=== PATIENT | female | born 1945 | race Caucasian/White ===

== ENCOUNTER → 2016-11-30 | Outpatient (CLI) | payer OTHER, MEDICARE ==
[~2016-11-30] MED LIST: ASCA500 PO; ATOR-24 PO; ATV/1 PO; B-COTAB18 PO; BUPR-79 PO; CALCTAB5 PO; CHOL100010 PO; FEXO1TAB49 PO; FLAX1CAP11 PO; FLUTICASONE NASAL NAE; LISI-725 PO; METH2.5T PO; MULT-506 PO; MULT60CA PO; OMEP40CA PO; OMG3 PO; OXYSR10 PO; PRED-301 PO; PSYL28PO3 PO; RXC5 PO; TURM1CAP4 PO; VITA400C15 PO
--- NOTE | 2016-11-30 13:47 | MAMMOGRAPHY REPORT ---
BILATERAL DIGITAL SCREENING MAMMOGRAM WITH CAD: 11/30/2016 CLINICAL HISTORY: Routine screening. Patient has no complaints. TECHNIQUE: Bilateral CC and MLO views were obtained. Current study was also evaluated with a Compute r Aided Detection (CAD) system. COMPARISON: Comparison is made to exams dated: 11/24/2015 mammogram, 07/03/2014 mammogram, 06/25/2014 ma mmogram, 03/13/2013 mammogram, 02/12/2012 mammogram, and 10/06/2010 mammogram - [facility] enter. BREAST COMPOSITION: There are scattered areas of fibroglandular density in both breasts. FINDINGS: There is a stable circumscribed oval mass in the 3:30 posterior left breast, previously doc umented to represent a cyst on ultrasound. There are moderate vascular calcifications and scattered benign round calcifications in the breasts. A grouping of benign-appearing microcalcifications in th e 12:00 left breast has been present and unchanged dating back to 2006, therefore likely benign. No new suspicious mass, architectural distortion or cluster of microcalcifications is seen. IMPRESSION: ACR BI-RADS CATEGORY 1: NEGATIVE There is no mammographic evidence of malignancy. A 1 year screening mammogram is recommended. The pa tient will receive written notification of the results. Approximately 10% of breast cancers are not detected with mammography. A negative mammographic report should not delay biopsy if a clinically suggestive mass is present. Mary Beth Garg M.D. ay/:11/30/2016 12:53:13 [employer] Loan Clerk: Ariane SAMPSON(Vincent)(Carloz)(JEFF), [facility] letter sent: Normal 1/2 BI-RADS Code: ACR BI-RADS Category 1: Negative
== END | disposition home or self-care (01) ==
LOC: C.MAMM 09:34
PROVIDERS: ATTEND Internal Medicine Pulmonary Disease
DX: Z12.31 Encounter for screening mammogram for malignant neoplasm of breast (principal)

== ENCOUNTER 2022-10-18 04:05 | Inpatient (IN) ==
--- NOTE | 2022-10-18 04:25 | Emergency Department Note ---
History of Present Illness General Chief complaint: Abdominal Pain Time Seen by Provider: 10/18/22 04:08 History of Present Illness 77-year-old female presents emergency department via EMS reportedly had fallen off of a stool and landed on the right side of her chest and abdomen 3 days ago. Patient states that she takes hydrocodone 4 times a day and went to her primary care physician 2 days ago and was prescribed an unknown lozenge; patient called EMS tonight as she was sleeping upright and had increased pain in the right upper quadrant and right flank. Patient does not recall the last bowel movement she has had. Patient's had a prior vascular surgery done in 2012 or so at a facility in [place]. Patient has taken aspirin prior to arrival otherwise she is typically on blood thinners. Patient denies any complaint of difficulty breathing states pain increases with motion decreases with rest. There are no other mitigating or alleviating factors Home Medications Medication Instructions Recorded Confirmed Type atorvastatin 40 mg tablet 40 mg PO DAILY 06/17/20 07/26/20 History bupropion HCl 150 mg tablet,12 hr 150 mg PO QAM 06/17/20 07/26/20 History sustained-release cholecalciferol (vitamin D3) 25 25 mcg PO DAILY 06/17/20 07/26/20 History mcg (1,000 unit) capsule hydrocodone 5 mg-acetaminophen 325 1 tab PO Q6H PRN 06/17/20 07/26/20 History mg tablet lisinopril 40 mg tablet 40 mg PO DAILY 06/17/20 07/26/20 History lorazepam 1 mg tablet (Ativan) 1 mg PO DAILY PRN 06/17/20 07/26/20 History methotrexate sodium 2.5 mg tablet 2.5 mg PO DAILY 06/17/20 07/26/20 History multivitamin 1 tab PO DAILY 06/17/20 07/26/20 History omeprazole 40 mg capsule,delayed 40 mg PO DAILY 06/17/20 07/26/20 History release prednisone 5 mg tablet 5 mg PO DAILY 06/17/20 07/26/20 History vitamin E (dl, acetate) 400 unit unit PO 06/17/20 07/26/20 History chewable tablet amlodipine 10 mg tablet 10 mg PO DAILY 10/18/22 10/18/22 History Allergies Allergy/AdvReac Type Severity Reaction Status Date / Time Penicillins Allergy Unknown SORE Verified 07/26/20 10:22 TONGUE, OVERALL MUSCLE PAIN Past Med/Surg History Medical History H/O benign breast biopsy Splenic artery aneurysm "s/p repair" Surgical History H/O section H/O colonoscopy "04/26/2015- adenomatous polyp, diverticulosis" H/O esophagogastroduodenoscopy "04/27/2015- hyperplastic polyp, large hiatal hernia, gastritis" History of partial thyroidectomy S/P tonsillectomy and adenoidectomy S/P tubal ligation Social History Smoking Status: Never smoker Hx Alcohol Use: No Feels Safe at Home: Yes Review of Systems A total of 10 systems reviewed and were otherwise negative Cardiovascular: no chest pain Gastrointestinal: + abdominal pain, + bloating and + nausea Physical Exam Vital Signs Vital Signs - 24 hr 10/18/22 04:17 10/18/22 04:35 10/18/22 04:14 Pulse Rate 78 80 Pulse Rate [Finger] 78 Pulse Rate from SpO2 Sensor Pulse Rhythm [Finger] Regular Respiratory Rate 20 18 20 Respiratory Effort / Characteristics Non-Labored Respiratory Depth Normal Blood Pressure 133/62 Blood Pressure Mean 85 Pulse Oximetry 87 L 98 82 L Oxygen Delivery Method Room Air Sepsis Recent Fever Within 48 Hours No Sepsis New/Unexplained Change in Mental Status No Sepsis Action Taken by Nursing No Action Required 10/18/22 04:15 10/18/22 04:15 10/18/22 04:14 Pulse Rate 79 80 Pulse Rate [Finger] Pulse Rate from SpO2 Sensor 81 Pulse Rhythm [Finger] Respiratory Rate 16 Respiratory Effort / Characteristics Respiratory Depth Blood Pressure 133/62 Blood Pressure Mean 85 Pulse Oximetry 89 L Oxygen Delivery Method Sepsis Recent Fever Within 48 Hours Sepsis New/Unexplained Change in Mental Status Sepsis Action Taken by Nursing GENERAL: Patient is awake alert in no acute distress patient is resting comfortably and showing no signs of anxiety EYES: The conjunctivae are clear. The pupils are round and reactive. EARS, NOSE, MOUTH AND THROAT: The nose is without any evidence of any deformity. Mucous membranes are moist. Tongue is midline. NECK: The neck is nontender and supple. RESPIRATORY: Normal respiratory effort is noted there is no evidence of wheezing rhonchi or rales CARDIOVASCULAR: Regular rate and rhythm noted there no murmurs rubs or gallops normal S1 normal S2. Chest wall on the right side there is no rib cage ecchymosis or significant tenderness or crepitance GASTROINTESTINAL: The abdomen is soft but distended there is some mild tenderness in the right upper right flank and right lower quadrants there is tympany present there is no abnormal aortic pulsations or masses PELVIS: The Pelvis is stable. No tenderness to palpation is noted. BACK: No midline tenderness or or step-off noted range of motion in flexion ex tension as well as rotation no signs of muscle spasm noted MUSCULOSKELETAL/EXTREMITIES: There is no evidence of gross deformity full range of motion is noted in the hips and shoulders. SKIN: There is no obvious evidence of any rash. There are no petechiae, pallor or cyanosis noted. NEUROLOGIC: Patient is awake alert and oriented x3 strength is symmetric; GCS of 15 Course Reevaluation(s) Reevaluation #1: On repeat examination the patient states that she has decreased pain in the right abdomen and flank. She states however when she moves it increases. Patient also states that she had a splenic artery grafting and also states that she has a hiatal hernia. Patient's had a history of diverticulosis with no significant diverticulitis. No has a tympanic abdomen. However she states she is more comfortable. Started her on IV Levaquin and Flagyl as she has an allergy to penicillin. Patient states that the pain is starting to increase again on the right side. I have ordered. Time: 05:19 Consultations Consultation #1: Case was discussed with the [facility] hospitalist for admission Time: 05:19 Administered Medications Discontinued Medications Fentanyl Citrate (Fentanyl Citrate Pf 100 Mcg/2 Ml Vial) 50 mcg IV NOW STA Stop: 10/18/22 05:18 Last Admin: 10/18/22 05:45 Dose: 50 mcg Documented By: KOKO Levofloxacin/Dextrose (Levaquin/D5w) 500 mg in 100 mls @ 100 mls/hr IV NOW STA Stop: 10/18/22 06:03 Last Admin: 10/18/22 05:12 Dose: 100 mls/hr Documented By: KOKO Metronidazole (Flagyl) 500 mg in 100 mls @ 100 mls/hr IV NOW STA Stop: 10/18/22 06:03 Last Admin: 10/18/22 05:12 Dose: 100 mls/hr Documented By: KOKO Medical Decision Making Medical Records Attestation: I reviewed the patient's medical records. Home Medications Current Medication List: was personally reviewed by me Laboratory Data Attestation: I reviewed the patient's lab results. Lab results were interpreted by is unremarkable 10/18/22 04:40 10/18/22 04:40 Lab Results 10/18/22 10/18/22 10/18/22 Range/Units 04:40 04:40 04:40 WBC 8.97 (4.8-10.8) K/ul RBC 4.51 (4.20-5.40) M/uL Hgb 14.5 (12.0-16.0) g/dl Hct 42.6 (37.0-47.0) % MCV 94.5 (80.0-100.0) fL MCH 32.2 (25.0-34.0) pg MCHC 34.0 (32.0-36.0) g/dL RDW Std Deviation 52.0 H (36.4-46.3) fL RDW Coeff of Glynn 15.2 H (11.5-14.5) % Plt Count 223 (130-400) K/uL MPV 9.9 (9.4-12.4) fL Immature Gran % (Auto) 0.6 % Neut % (Auto) 75.2 % Lymph % (Auto) 13.0 % [place] % (Auto) 8.7 % Eos % (Auto) 1.8 % Baso % (Auto) 0.7 % Neut # (Auto) 6.75 H (1.40-6.50) K/uL Lymph # (Auto) 1.17 L (1.2-3.4) K/uL [place] # (Auto) 0.78 H (0.11-0.59) K/uL Eos # (Auto) 0.16 (0-0.50) K/uL Baso # (Auto) 0.06 (0-0.2) K/uL Immature Gran # (Auto) 0.05 (0.01-0.20) K/uL PT Cancelled INR Cancelled Sodium 136 (136-145) mmol/L Potassium 4.5 (3.5-5.1) mmol/L Chloride 102 (98-107) mmol/L Carbon Dioxide 28 (21-32) mmol/L Anion Gap 6 (3-11) BUN 24 H (6-23) mg/dl Creatinine 0.65 (0.6-1.2) mg/dl Est Cr Clr Drug Dosing 79.2 ml/min Est GFR ( Amer) 99.3 ml/min Est GFR (Non-Af Amer) 85.6 ml/min BUN/Creatinine Ratio 36.9 H (10-20) Glucose 111 H (70-99(Fasting)) mg/dl Calcium 9.3 (8.6-10.3) mg/dl Total Bilirubin 0.6 (0.2-1.0) mg/dl AST 19 (13-39) U/L ALT 24 (7-52) U/L Alkaline Phosphatase 67 (34-104) U/L Total Protein 6.9 (6.0-8.3) gm/dl Albumin 3.8 (3.4-5.0) gm/dl Globulin 3.1 (2.5-4.0) gm/dl Albumin/Globulin Ratio 1.2 (0.9-2) Lipase 13 (11-82) U/L Imaging Data Attestation: I personally reviewed and interpreted this imaging study as follows: My Impression: CT abdomen pelvis interpreted by me negative for liver laceration no obvious bowel obstruction Radiologist's Impression: Abdomen/Pelvis CT 10/18/22 04:08 Exam(s): CT ABDOMEN + PELVIS Without Contrast EXAM: CT Abdomen and Pelvis Without Intravenous Contrast CLINICAL HISTORY: abd pain. TECHNIQUE: Axial computed tomography images of the abdomen and pelvis without intravenous contrast. Automated exposure control was utilized for the study. A dose lowering technique was utilized adhering to the principles of ALARA. COMPARISON: No relevant prior studies available. FINDINGS: Lung bases: Unremarkable. No mass. No consolidation. ABDOMEN: Liver: Unremarkable. Gallbladder and bile ducts: Punctate gallstones noted along the posterior aspect of the gallbladder. No CT evidence for gallbladder wall thickening or biliary dilatation. Pancreas: Focal area of beam hardening metallic artifact is noted superior to the pancreatic tail and adjacent to the proximal splenic artery measuring 3.9 x 2.5 cm. The pancreas is unremarkable without inflammatory changes or ductal dilation. Spleen: Unremarkable. No splenomegaly. Adrenals: Unremarkable. No mass. Kidneys and ureters: Incidental nonobstructive subcentimeter nephrolithiasis involving the right kidney. No left nephrolithiasis. No hydronephrosis noted bilaterally. Stomach and bowel: There is a heterogeneous mass with irregular hypodense component centrally along the left lateral aspect of the herniated stomach in the posterior mediastinum measuring 5.5 x 5.5 x 6.8 cm. Hiatal hernia containing the fundus and superior body of the stomach in the posterior mediastinum. The distal, intraperitoneal portion of the stomach is decompressed and unremarkable. No bowel obstruction. No definite asymmetric bowel mucosal abnormality, accounting for decompression of the sigmoid colon. Diverticulosis noted with subtle fat stranding surrounding a diverticula in the mid to distal sigmoid and the anterior right pelvis (series 700; images 35-37). PELVIS: Appendix: No findings to suggest acute appendicitis. Bladder: Unremarkable. No stones. Reproductive: Unremarkable as visualized. ABDOMEN and PELVIS: Intraperitoneal space: No free intraperitoneal fluid or pneumoperitoneum. Bones/joints: No acute fracture. No dislocation. Soft tissues: No significant abnormality. No hernia. Vasculature: Unremarkable. No abdominal aortic aneurysm. Lymph nodes: Unremarkable. No enlarged lymph nodes. IMPRESSION: 1. There is a heterogeneous mass with irregular hypodense component centrally along the left lateral aspect of the herniated stomach in the posterior mediastinum measuring 5.5 x 5.5 x 6.8 cm. Favor an exophytic gastric mass over atypical gastric hernia. Recommend nonemergent evaluation with IV and ideally oral contrast. 2. No bowel obstruction. No definite asymmetric bowel mucosal abnormality, accounting for decompression of the sigmoid colon. Diverticulosis noted with subtle fat stranding surrounding a diverticula in the mid to distal sigmoid and the anterior right pelvis (series 700; images 35-37). Subtle sigmoid diverticulitis is noted. The clinical significance of this finding is indeterminate. 3. Focal area of beam hardening metallic artifact is noted superior to the pancreatic tail and adjacent to the proximal splenic artery measuring 3.9 x 2.5 cm. Suspect previous splenic artery aneurysm embolization. Electronically signed by: Luis A Keller MD 10/18/22 04:[address] 10/18/22 04:17 Exam(s): CT CHEST Without Contrast EXAM: CT Chest Without Intravenous Contrast CLINICAL HISTORY: rib pain. TECHNIQUE: Axial computed tomography images of the chest without intravenous contrast. Automated exposure control was utilized for the study. A dose lowering technique was utilized adhering to the principles of ALARA. COMPARISON: No relevant prior studies available. FINDINGS: Lungs: Curvilinear subsegmental changes in the inferior right middle lobe and bilateral lower lobes. No focal airspace consolidation. Pleural space: Unremarkable. No pneumothorax. No significant effusion. Heart: Cardiomegaly. Coronary artery calcification noted. No significant pericardial effusion. Mediastinum: The thoracic esophagus is decompressed without mucosal thickening or evidence for obstruction. Hiatal hernia containing the fundus and superior body of the stomach in the posterior mediastinum. The distal, intraperitoneal portion of the stomach is decompressed and unremarkable. Bones/joints: Left shoulder arthroplasty. No acute osseous abnormality. No dislocation. Soft tissues: Unremarkable. Vasculature: Unremarkable. No thoracic aortic aneurysm. Lymph nodes: Unremarkable. No enlarged lymph nodes. Stomach and bowel: There is a heterogeneous mass with irregular hypodense component centrally along the left lateral aspect of the herniated stomach in the posterior mediastinum measuring 5.5 x 5.5 x 6.8 cm. IMPRESSION: 1. There is a heterogeneous mass with irregular hypodense component centrally along the left lateral aspect of the herniated stomach in the posterior mediastinum measuring 5.5 x 5.5 x 6.8 cm. Favor an exophytic gastric mass over atypical gastric hernia. Recommend nonemergent evaluation with IV and ideally oral contrast. 2. The thoracic esophagus is decompressed without mucosal thickening or evidence for obstruction. 3. Curvilinear subsegmental atelectatic changes in the inferior right middle lobe and bilateral lower lobes. No focal airspace consolidation. 4. No acute osseous abnormality. Electronically signed by: Luis A Keller MD 10/18/22 04:55 AM ECG Data Attestation: I personally reviewed and interpreted this ECG as follows: Additional Comments: EKG interpreted by me normal sinus rhythm rate of 80 normal intervals normal axis no obvious ST segment elevation or depression MDM Narrative Medical decision making differential diagnosis includes intra-abdominal trauma, liver laceration, bowel obstruction, rib fracture, constipation, electrolyte abnormality, chest wall trauma Plan is to check labs, CT abdomen pelvis and CT chest Patient's lab work is unremarkable, patient's CT of the chest did not show any trauma, CT of the abdomen pelvis also does not show an intra-abdominal traumatic process there is diverticulosis with diverticulitis there is a mass in the posterior mediastinal region. Do not suspect this to be the cause of the patient's abdominal pain. Patient has mild diverticulitis again this may not be the cause of her pain. Patient was started on IV antibiotics. The etiology of her pain may in fact still be related to trauma however there is no significant trauma on CT of the chest or abdomen. Patient will be admitted for further evaluation and treatment Impression & Plan Abdominal pain, Diverticulitis Discharge Plan Visit Data Chief Complaint: Abdominal Pain ED Provider: Raj Colon Discharge Problem: Abdominal pain, Diverticulitis Patient Disposition: Admitted As Inpatient Forms Stand Alone Forms: [facility] Prescriptions Prescriptions: No Action lisinopril 40 mg tablet 40 mg PO DAILY hydrocodone-acetaminophen 5-325 mg tablet 1 tab PO Q6H PRN atorvastatin 40 mg tablet 40 mg PO DAILY bupropion HCl 150 mg tablet sustained-release 12 hr 150 mg PO QAM cholecalciferol (vitamin D3) 25 mcg (1,000 unit) capsule 25 mcg PO DAILY lorazepam [Ativan] 1 mg tablet 1 mg PO DAILY PRN methotrexate sodium 2.5 mg tablet 2.5 mg PO DAILY Rx Instructions: 8 tablets on Sunday multivitamin Tablet 1 tab PO DAILY omeprazole 40 mg capsule,delayed release(DR/EC) 40 mg PO DAILY prednisone 5 mg tablet 5 mg PO DAILY vitamin E (dl, acetate) 400 unit tablet,chewable PO Rx Instructions: 1 X daily amlodipine 10 mg tablet 10 mg PO DAILY Referrals Referrals: Andrew Herndon MD [Primary Care Provider] -
--- NOTE | 2022-10-18 04:52 | CT Scan Report ---
Exam(s): CT ABDOMEN + PELVIS Without Contrast EXAM: CT Abdomen and Pelvis Without Intravenous Contrast CLINICAL HISTORY: abd pain. TECHNIQUE: Axial computed tomography images of the abdomen and pelvis without intravenous contrast. Automated exposure control was utilized for the study. A dose lowering technique was utilized adhering to the principles of ALARA. COMPARISON: No relevant prior studies available. FINDINGS: Lung bases: Unremarkable. No mass. No consolidation. ABDOMEN: Liver: Unremarkable. Gallbladder and bile ducts: Punctate gallstones noted along the posterior aspect of the gallbladder. No CT evidence for gallbladder wall thickening or biliary dilatation. Pancreas: Focal area of beam hardening metallic artifact is noted superior to the pancreatic tail and adjacent to the proximal splenic artery measuring 3.9 x 2.5 cm. The pancreas is unremarkable without inflammatory changes or ductal dilation. Spleen: Unremarkable. No splenomegaly. Adrenals: Unremarkable. No mass. Kidneys and ureters: Incidental nonobstructive subcentimeter nephrolithiasis involving the right kidney. No left nephrolithiasis. No hydronephrosis noted bilaterally. Stomach and bowel: There is a heterogeneous mass with irregular hypodense component centrally along the left lateral aspect of the herniated stomach in the posterior mediastinum measuring 5.5 x 5.5 x 6.8 cm. Hiatal hernia containing the fundus and superior body of the stomach in the posterior mediastinum. The distal, intraperitoneal portion of the stomach is decompressed and unremarkable. No bowel obstruction. No definite asymmetric bowel mucosal abnormality, accounting for decompression of the sigmoid colon. Diverticulosis noted with subtle fat stranding surrounding a diverticula in the mid to distal sigmoid and the anterior right pelvis (series 700; images 35-37). PELVIS: Appendix: No findings to suggest acute appendicitis. Bladder: Unremarkable. No stones. Reproductive: Unremarkable as visualized. ABDOMEN and PELVIS: Intraperitoneal space: No free intraperitoneal fluid or pneumoperitoneum. Bones/joints: No acute fracture. No dislocation. Soft tissues: No significant abnormality. No hernia. Vasculature: Unremarkable. No abdominal aortic aneurysm. Lymph nodes: Unremarkable. No enlarged lymph nodes. IMPRESSION: 1. There is a heterogeneous mass with irregular hypodense component centrally along the left lateral aspect of the herniated stomach in the posterior mediastinum measuring 5.5 x 5.5 x 6.8 cm. Favor an exophytic gastric mass over atypical gastric hernia. Recommend nonemergent evaluation with IV and ideally oral contrast. 2. No bowel obstruction. No definite asymmetric bowel mucosal abnormality, accounting for decompression of the sigmoid colon. Diverticulosis noted with subtle fat stranding surrounding a diverticula in the mid to distal sigmoid and the anterior right pelvis (series 700; images 35-37). Subtle sigmoid diverticulitis is noted. The clinical significance of this finding is indeterminate. 3. Focal area of beam hardening metallic artifact is noted superior to the pancreatic tail and adjacent to the proximal splenic artery measuring 3.9 x 2.5 cm. Suspect previous splenic artery aneurysm embolization. Electronically signed by: Luis A Keller MD 10/18/22 04:51 AM
--- NOTE | 2022-10-18 04:56 | CT Scan Report ---
Exam(s): CT CHEST Without Contrast EXAM: CT Chest Without Intravenous Contrast CLINICAL HISTORY: rib pain. TECHNIQUE: Axial computed tomography images of the chest without intravenous contrast. Automated exposure control was utilized for the study. A dose lowering technique was utilized adhering to the principles of ALARA. COMPARISON: No relevant prior studies available. FINDINGS: Lungs: Curvilinear subsegmental changes in the inferior right middle lobe and bilateral lower lobes. No focal airspace consolidation. Pleural space: Unremarkable. No pneumothorax. No significant effusion. Heart: Cardiomegaly. Coronary artery calcification noted. No significant pericardial effusion. Mediastinum: The thoracic esophagus is decompressed without mucosal thickening or evidence for obstruction. Hiatal hernia containing the fundus and superior body of the stomach in the posterior mediastinum. The distal, intraperitoneal portion of the stomach is decompressed and unremarkable. Bones/joints: Left shoulder arthroplasty. No acute osseous abnormality. No dislocation. Soft tissues: Unremarkable. Vasculature: Unremarkable. No thoracic aortic aneurysm. Lymph nodes: Unremarkable. No enlarged lymph nodes. Stomach and bowel: There is a heterogeneous mass with irregular hypodense component centrally along the left lateral aspect of the herniated stomach in the posterior mediastinum measuring 5.5 x 5.5 x 6.8 cm. IMPRESSION: 1. There is a heterogeneous mass with irregular hypodense component centrally along the left lateral aspect of the herniated stomach in the posterior mediastinum measuring 5.5 x 5.5 x 6.8 cm. Favor an exophytic gastric mass over atypical gastric hernia. Recommend nonemergent evaluation with IV and ideally oral contrast. 2. The thoracic esophagus is decompressed without mucosal thickening or evidence for obstruction. 3. Curvilinear subsegmental atelectatic changes in the inferior right middle lobe and bilateral lower lobes. No focal airspace consolidation. 4. No acute osseous abnormality. Electronically signed by: Luis A Keller MD 10/18/22 04:55 AM
[2022-10-18 04:58] LABS: Basophils # (auto) 0.06 K/uL (0-0.2); Basophils % (auto) 0.7 %; Eosinophils # (auto) 0.16 K/uL (0-0.50); Eosinophils % (auto) 1.8 %; Hematocrit (blood only) 42.6 % (37.0-47.0); Hemoglobin 14.5 g/dl (12.0-16.0); Immature Granulocytes # (auto) 0.05 K/uL (0.01-0.20); Immature Granulocytes % (auto) 0.6 %; Lymphocytes # (auto) 1.17 K/uL (1.2-3.4); Mean Corpuscular Hemoglobin 32.2 pg (25.0-34.0); Mean Corpuscular Volume 94.5 fL (80.0-100.0); Mean Platelet Volume 9.9 fL (9.4-12.4); Monocytes # (auto) 0.78 K/uL (0.11-0.59); Monocytes % (auto) 8.7 %; Neutrophils # (auto) 6.75 K/uL (1.40-6.50); Neutrophils % (auto) 75.2 %; Platelet Count 223 K/uL (130-400); RDW Coefficient of Variation 15.2 % (11.5-14.5); Red Blood Count 4.51 M/uL (4.20-5.40); White Blood Count 8.97 K/ul (4.8-10.8)
[2022-10-18] MEDS ORDERED: metroNIDAZOLE 500 MG/100 ML BAG IV STA (05:04)
[2022-10-18] MEDS ORDERED: levoFLOXacin/D5W 500 MG/100 ML BAG IV STA (05:04)
[2022-10-18 05:15] LABS: Albumin Globulin Ratio 1.2 (0.9-2); Albumin Level 3.8 gm/dl (3.4-5.0); BUN Creatinine Ratio 36.9 (10-20); Bilirubin,Total 0.6 mg/dl (0.2-1.0); Calcium 9.3 mg/dl (8.6-10.3); Creatinine Clr Calc Pharmacy 79.2 ml/min; Est GFR (African American) 99.3 ml/min; Est GFR (Non-African American) 85.6 ml/min; Globulin 3.1 gm/dl (2.5-4.0); Potassium 4.5 mmol/L (3.5-5.1); Total Protein 6.9 gm/dl (6.0-8.3)
[2022-10-18] MEDS ORDERED: fentaNYL citrate PF 100 MCG/2 ML VIAL IV STA (05:17)
[2022-10-18] MEDS ORDERED: LORazepam 1 MG TAB PO PRN (06:36)
[2022-10-18] MEDS ORDERED: ACETAMINOPHEN 325 MG TAB PO PRN (06:36)
[2022-10-18] MEDS: SODIUM CHLORIDE 0.9% 1000ML 1,000 ML IV SCH ×2 (06:48→10:45)
[2022-10-18 07:39] LABS: Lyme Ab IgG w/WB Rflx Negative (Negative); Lyme Ab IgM w/WB Rflx Negative (Negative)
[2022-10-18] MEDS: MoRPHine SULFATE 4 MG/ML 1 ML CARP\\VIAL IV PRN (07:40)
[2022-10-18 07:43] LABS: Prothrombin Time 10.9 Seconds (9.0-12.0)
--- NOTE | 2022-10-18 07:50 | Gastrointestinal Consultation ---
Date of Consultation October 18, 2022 Assessment & Plan (1) Abdominal pain: Clinically, her right lower quadrant pain is more in line with muscular skeletal pain from the fall from a ladder 3 days ago, then it is diverticulitis (no left- sided abdominal pain), or hiatal hernia related pain or gastric mass. Still, her imaging is concerning for gastric mass and that should be ruled out. Plan EGD EUS today by Dr. Reaves. Please keep n.p.o. Further recommendations to follow EGD EUS. Supervising Physician Co-Signing Physician Notes I performed a history and physical examination of the patient today, including specifically on physical exam - soft abdomen. I have discussed the patient's management with the advanced practitioner. Please refer to the nurse practitioner's note for the documented findings and plan of care. EGD/EUS today Patient was explained in detail regarding risks, benefits, limitations and alternatives of the above endoscopic procedure. Risks of intravenous sedation used for procedure were also explained. Risks include, but not limited to perforation, bleeding, infection, respiratory distress, cardiac arrest and . Patient is also aware about the possibility of missed lesion. Patient's questions were answered. The patient verbalized understanding the information and agreed to undergo the procedure. History of Present Illness Reason for Consultation: gastric mass? Requesting Physician: Dr. Bernard Attending Physician: Topher Mai MD History of Present Illness Ms. Sirisha Tang is a 77 yr old female pt of Dr. Andrew Herndon w a hx of SLE (on methotrexate), HTN, GERD, splenic artery aneurysm S/P coil repair who was brought to the ED yesterday for the fal and resultant pain. She tells me that the fall occurred on Sunday and that she has had pain in the right lower quadrant of her abdomen the right side and her right mid back since the fall. The pain has been so severe that she has not been able to sleep well at night. She has had some nausea with the pain but no vomiting. She has not had any epigastric pain. She gets heartburn occasionally maybe once a month or so, but does not believe she has had any problems with her known hiatal hernia. She denies any recent constipation or diarrhea no blood in her bowel movements. Non contrast CT on arrival w suggestion of a gastric mass vs. atypical gastric hernia. Most recent EGD was in 2014 w a large HH, gastritis and duodenal polyps. Allergies Allergy/AdvReac Type Severity Reaction Status Date / Time Penicillins Allergy Unknown SORE Verified 07/26/20 10:22 TONGUE, OVERALL MUSCLE PAIN Home Medications Medication Instructions Recorded Confirmed Type atorvastatin 40 mg tablet 40 mg PO DAILY 06/17/20 07/26/20 History bupropion HCl 150 mg tablet,12 hr 150 mg PO QAM 06/17/20 07/26/20 History sustained-release hydrocodone 5 mg-acetaminophen 325 1 tab PO Q6H PRN 06/17/20 07/26/20 History mg tablet lisinopril 40 mg tablet 40 mg PO DAILY 06/17/20 07/26/20 History lorazepam 1 mg tablet (Ativan) 1 mg PO DAILY PRN 06/17/20 07/26/20 History methotrexate sodium 2.5 mg tablet 2.5 mg PO DIRECTED 06/17/20 07/26/20 History multivitamin 1 tab PO DAILY 06/17/20 07/26/20 History omeprazole 40 mg capsule,delayed 40 mg PO DAILY 06/17/20 07/26/20 History release prednisone 5 mg tablet 5 mg PO DAILY 06/17/20 07/26/20 History amlodipine 10 mg tablet 10 mg PO DAILY 10/18/22 10/18/22 History Patient History Medical History H/O benign breast biopsy Splenic artery aneurysm "s/p repair" Surgical History H/O section H/O colonoscopy "04/26/2015- adenomatous polyp, diverticulosis" H/O esophagogastroduodenoscopy "04/27/2015- hyperplastic polyp, large hiatal hernia, gastritis" History of partial thyroidectomy S/P tonsillectomy and adenoidectomy S/P tubal ligation Social History Smoking Status: Never smoker Second Hand Exposure: No; Do You Dip or Chew Tobacco: No; Tobacco Cessation Education Requested by Patient: No Hx Alcohol Use: No Hx Substance Use: No Preferred Language: Bahraini Communication Ability: Effective Refund Specialist Required: No Beliefs That Will Affect Care: None Current Living Situation: Spouse Other Information That Helps Us Care for You: No Feels Safe at Home: Yes Safety Concerns: Feels Safe At This Time Review of Systems Review of Systems: ROS: Gen: + very fatigued from poor sleep from pain from the fall. Denies weakness, fevers, weight loss Eyes: No eye redness, or pain, no recent vision changes Resp: No SOB, no cough Cardio: No palpitations/irregular beats, no chest pain GI: As per HPI, otherwise negative. : Denies pain on urination Skin: No jaundice, itching or new rashes M/S: pain in areas mentioned above. Very painful if twists/turns the torso. Physical Exam Constitutional: WD/WN, vitals as above Eyes: PERRL, conjunctivae normal, anicteric sclerae ENMT: external ear and nose normal, oropharynx normal Neck: trachea midline, no thyromegaly Respiratory: normal respiratory effort, lungs clear to auscultation Cardiovascular: RRR, no murmur, no edema Gastrointestinal (Abdomen): Soft, Tenderness in the right lower quadrant and the right side just above the iliac crest. Bowel sounds are normal active, Abdomen is nondistended. Skin: no rashes, warm and dry Neurologic: PERRL, EOMI, accommodation nl, no face palsy, no dysarthria Psychiatric: Orientation: alert, oriented x 3 and oriented to person Eye Contact: good eye contact Motor Behavior: n tremor Lymphatic: no cervical or axillary lymphadenopathy Results & Data Vital Signs (Past 12 Hours) Vital Signs Pulse Pulse Resp BP Pulse Ox O2 Del Method 10/18/22 07:07 78 10/18/22 06:30 79 15 92 10/18/22 06:00 81 18 93 10/18/22 05:31 79 24 91 10/18/22 05:31 124/75 10/18/22 05:30 79 19 92 10/18/22 05:00 77 18 92 10/18/22 05:00 112/73 10/18/22 04:31 139/95 10/18/22 04:31 23 86 L 10/18/22 04:30 78 21 90 10/18/22 04:14 80 10/18/22 04:15 79 16 89 L 10/18/22 04:15 133/62 10/18/22 04:14 80 20 82 L 10/18/22 04:35 78 18 98 10/18/22 04:17 78 20 133/62 87 L Room Air Laboratory Results WBC 5, Hb 14.5, HCT 42, PLT S223, NA 136, K4.5, CL 102, CO2 28, BUN 24, CR 0.65, glucose 111. Diagnostic Findings Non contrast CTAP 10/17/22: 1. There is a heterogeneous mass with irregular hypodense component centrally along the left lateral aspect of the herniated stomach in the posterior mediastinum measuring 5.5 x 5.5 x 6.8 cm. Favor an exophytic gastric mass over atypical gastric hernia. Recommend nonemergent evaluation with IV and ideally oral contrast. 2. No bowel obstruction. No definite asymmetric bowel mucosal abnormality, accounting for decompression of the sigmoid colon. Diverticulosis noted with subtle fat stranding surrounding a diverticula in the mid to distal sigmoid and the anterior right pelvis (series 700; images 35-37). Subtle sigmoid diverticulitis is noted. The clinical significance of this finding is indeterminate. 3. Focal area of beam hardening metallic artifact is noted superior to the pancreatic tail and adjacent to the proximal splenic artery measuring 3.9 x 2.5 cm. Suspect previous splenic artery aneurysm embolization.
[2022-10-18 08:03] LABS: Appearance Urine Clear (Clear); Bacteria Urine Automated Negative (Negative); Bilirubin Urine Negative (Negative); Blood Urine Negative (Negative); Color Urine Dark Yellow; Epithelial Cell Urine Auto >30 /lpf (0-5); Glucose Urine UA Negative (Negative); Ketones Urine Trace (Negative); Leukocyte Esterase Urine Trace (Negative); Nitrite Urine Negative (Negative); Protein Urine Negative (Negative); Specific Gravity Urine 1.028 (1.000-1.030); Urobilinogen Urine Negative (Negative); pH Urine 5.5 (4.5-7.5)
--- NOTE | 2022-10-18 09:11 | History and Physical Report ---
DATE OF ADMISSION: 10/18/2022 CHIEF COMPLAINT: Right flank and abdominal pain. HISTORY OF PRESENT ILLNESS: A 77-year-old female with past medical history significant for hyperlipidemia, hypertension, reflux esophagitis, colitis, osteoporosis, history of iron deficiency anemia, history of SLE, and history of COVID-19, presents with fall and right flank and abdominal pain. The patient states on Sunday on her porch she stood on a 3-step stool and trying to put stuff om the roof. when she looked up, the patient felt dizzy and she fell, and while falling down, she held on the pole and pole hit the right side of the abdomen and flank region and she fell on the back, did not hit her head, no loss of consciousness. She was down for some time because of pain, and then after that, she was able to get up and walk. The pain is getting worse and thats the reason she came to the ER today. Denies any chest pain. When the pain is severe, she will still get some shortness of breath and nausea. She says she was recently treated for pneumonia a few weeks back. Her cough is improved. At that time, she had ear fullness and it has improved now. No runny nose. No sore throat. Appetite is okay. Denies any headache. She feels some dizziness with standing. Vision is okay. Constipated since last Sunday. Normal bladder movements. No hematuria. No swelling in the legs. Currently, resting comfortably and hemodynamically stable. ALLERGIES: PENICILLINS. PAST MEDICAL HISTORY: As mentioned above. PAST SURGICAL HISTORY: History of 3 C-sections, colonoscopy, EGDs, it looks like she has also had lens extraction, ligation of oviducts, partial removal of thyroid lobe, left shoulder surgery, tonsillectomy, adenoidectomy, and small bowel endoscopy with biopsy.Splenic artery aneurysm embolization MEDICATIONS: The patient is on amlodipine 10 mg p.o. daily, atorvastatin 40 mg p.o. daily, bupropion 150 mg p.o. a.m., hydrocodone/acetaminophen 5/325 mg 1 tablet p.o. q.6 hours p.r.n., lisinopril 40 mg p.o. daily, lorazepam 1 mg p.o. daily p.r.n., methotrexate 2.5 mg tablets 8 tablets once a week, multivitamin 1 tablet p.o. daily, omeprazole 40 mg p.o. daily, and prednisone 5 mg p.o. daily. FAMILY HISTORY: Significant for father has arthritis and heart disorder, mother has colon cancer and breast cancer, brother has leukemia and prostate cancer, and sister has breast cancer. SOCIAL HISTORY: Currently living alone. States one of her family member lives close by. No smoking. No alcohol. She says she stopped drinking alcohol as per epic from 2006. REVIEW OF SYSTEMS: As per HPI. Rest of review of systems is negative. PHYSICAL EXAMINATION: GENERAL: The patient is obese, not in acute distress. VITAL SIGNS: Temperature afebrile, pulse 78, respiratory rate 18, blood pressure 133/62, and oxygen saturation 98% on room air. HEENT: Pupils equal, round, and reactive to light. Oral mucosa moist. NECK: No JVD. No neck masses. CARDIOVASCULAR: S1 and S2 heard. Regular rate and rhythm. No murmur. No gallop. RESPIRATORY SYSTEM: Normal AP diameter. No accessory muscle use. No wheezing or crackles. ABDOMEN: Soft. Bowel sounds present. Tenderness in the right lower quadrant and flank region. Mild guarding. No rigidity. No distention. CENTRAL NERVOUS SYSTEM: Alert and oriented. Speech is clear. No facial droop. Insight is okay. Moves extremities. EXTREMITIES: No edema. No erythema. LABORATORY DATA: WBC 8.9, hemoglobin 14.5, hematocrit 42.6, and platelets 223. Sodium 136, potassium 4.5, chloride 102, bicarbonate 28, BUN 24, creatinine 0.65, serum glucose 111, and calcium 9.3. Total bilirubin 0.6, AST 19, ALT 24, alkaline phosphatase 67, and lipase 13. SARS-CoV-2 rapid test pending. IMAGING DATA: CT of the chest without contrast :1. There is a heterogeneous mass with irregular hypodense component centrally along the left lateral aspect of the herniated stomach in the posterior mediastinum measuring 5.5 x 5.5 x 6.8 cm. Favor an exophytic gastric mass over atypical gastric hernia. Recommend nonemergent evaluation with IV and ideally oral contrast. 2. The thoracic esophagus is decompressed without mucosal thickening or evidence for obstruction. 3. Curvilinear subsegmental atelectatic changes in the inferior right middle lobe and bilateral lower lobes. No focal airspace consolidation. 4. No acute osseous abnormality. CT abdomen and pelvis without contrast 1. There is a heterogeneous mass with irregular hypodense component centrally along the left lateral aspect of the herniated stomach in the posterior mediastinum measuring 5.5 x 5.5 x 6.8 cm. Favor an exophytic gastric mass over atypical gastric hernia. Recommend nonemergent evaluation with IV and ideally oral contrast. 2. No bowel obstruction. No definite asymmetric bowel mucosal abnormality, accounting for decompression of the sigmoid colon. Diverticulosis noted with subtle fat stranding surrounding a diverticula in the mid to distal sigmoid and the anterior right pelvis (series 700; images 35-37). Subtle sigmoid diverticulitis is noted. The clinical significance of this finding is indeterminate. 3. Focal area of beam hardening metallic artifact is noted superior to the pancreatic tail and adjacent to the proximal splenic artery measuring 3.9 x 2.5 cm. Suspect previous splenic artery aneurysm embolization. ASSESSMENT AND PLAN: This is a 77-year-old female, who on Sunday fell from the 3-step stool in the porch While falling down, she tried to hold the pole, which hit the right side of the stomach and she fell on the back, comes because of right flank and abdominal pain. 1. Right flank and abdominal pain. Imaging studies showing some gastric mass vs atypical hernia. We will admit her to the hospital, n.p.o., IV fluids, IV pain medication p.r.n., and consult GI . 2. Hypertension, continue lisinopril and amlodipine. 3. Hyperlipidemia, continue statin. 4. Depression and anxiety,?continue her home medication. 5. History of systemic lupus erythematosus, continue prednisone. Hold methotrexate for now. 6. Gastroesophageal reflux disease, on omeprazole. 7. History of iron deficiency anemia, hemoglobin is stable. 8. Deep venous thrombosis prophylaxis, heparin subcutaneously. DISPOSITION: Closely monitor in the medical floor. Expect to discharge home and follow with family doctor. Job ID: [id number] [facility]
[2022-10-18] MEDS: HYDROCODONE/ACETAMOPHEN 5/325MG TAB PO PRN ×3 (09:19→22:35)
[2022-10-18] MEDS: amLODIPine BESYLATE 5 MG TAB PO SCH (09:20)
[2022-10-18] MEDS: MULTIVITAMIN TAB PO SCH (09:20)
[2022-10-18] MEDS: buPROPion SR 150 MG TABCR PO SCH (09:20)
[2022-10-18] MEDS: ATORVASTATIN 40 MG TAB PO SCH (09:20)
[2022-10-18] MEDS: PANTOprazole 40 MG TAB PO SCH (09:20)
[2022-10-18] MEDS: lisinopril 40 MG TAB PO SCH (09:21)
[2022-10-18] MEDS: predniSONE 5 MG TAB PO SCH (09:21)
--- NOTE | 2022-10-18 10:53 | Electrocardiogram Report ---
Test Reason : Blood Pressure : / mmHG Vent. Rate : 080 BPM Atrial Rate : 080 BPM P-R Int : 164 ms QRS Dur : 078 ms QT Int : 360 ms P-R-T Axes : 044 003 042 degrees QTc Int : 415 ms Normal sinus rhythm Low voltage QRS Borderline ECG When compared with ECG of 01-FEB-2016 15:19, No significant change was found Confirmed by Bart Patel ([id number]) on 10/18/2022 10:53:14 AM Referred By: REFERRED SELF Confirmed By:Bart Patel
[2022-10-18] MEDS ORDERED: PROPOFOL IV EMULSION 10 MG/ML 20 ML VIAL IV ONE (11:55)
[2022-10-18] MEDS ORDERED: fentaNYL citrate PF 100 MCG/2 ML VIAL ONE (11:55)
[2022-10-18] MEDS ORDERED: MIDAZOLAM HCL 1 MG/ML 2ML VIAL ONE (11:55)
[2022-10-18] MEDS ORDERED: ONDANSETRON INJ 2 MG/ML 2 ML VIAL ONE (11:55)
[2022-10-18] MEDS ORDERED: LIDOCAINE 2% 2 ML VIAL/AMP(20MG/ML) INFIL ONE (11:55)
--- NOTE | 2022-10-18 12:08 | Anesthesiology Consultation ---
Date of Service October 18, 2022 Assessment & Plan Chart Review Chart Review: Acceptable Risk for Surgery and Patient NOT seen in Pre Admission Testing Consults Requested none ASA ASA3 Proposed Anesthesia Anesthesia Type: General Risk / Benefits Reviewed With: PT / POA / Parent / Guardian, Accepts Plan and Informed Consent Obtained History Surgery Operation Date: 10/18/22 09:50 Proposed Procedures p Endoscopic Ultrasonography Upper - Humza Reaves MD Height/Weight Height: 5 ft 5 in Weight: 87.5 kg Allergies Allergy/AdvReac Type Severity Reaction Status Date / Time Penicillins Allergy Unknown SORE Verified 07/26/20 10:22 TONGUE, OVERALL MUSCLE PAIN Medications Home Medications Medication Instructions Recorded Confirmed Last Taken atorvastatin 40 mg tablet 40 mg PO DAILY 06/17/20 07/26/20 Unknown bupropion HCl 150 mg tablet,12 hr 150 mg PO QAM 06/17/20 07/26/20 Unknown sustained-release hydrocodone 5 mg-acetaminophen 325 1 tab PO Q6H PRN 06/17/20 07/26/20 Unknown mg tablet lisinopril 40 mg tablet 40 mg PO DAILY 06/17/20 07/26/20 Unknown lorazepam 1 mg tablet (Ativan) 1 mg PO DAILY PRN 06/17/20 07/26/20 Unknown methotrexate sodium 2.5 mg tablet 2.5 mg PO DIRECTED 06/17/20 07/26/20 Un known multivitamin 1 tab PO DAILY 06/17/20 07/26/20 Unknown omeprazole 40 mg capsule,delayed 40 mg PO DAILY 06/17/20 07/26/20 Unknown release prednisone 5 mg tablet 5 mg PO DAILY 06/17/20 07/26/20 Unknown amlodipine 10 mg tablet 10 mg PO DAILY 10/18/22 10/18/22 Unknown Active Medications Generic Name Dose Route Start Last Admin Trade Name Freq PRN Reason Stop Dose Admin Hydrocodone Bitart/Acetaminophen 1 tab 10/18/22 06:36 10/18/22 09:19 Hydrocodone/Acetamophen 5/325mg Tab PO 11/01/22 06:35 1 tab Q6H PRN Administration Pain Amlodipine Besylate 10 mg 10/18/22 09:00 10/18/22 09:20 Amlodipine Besylate 5 Mg Tab PO 11/17/22 08:59 10 mg DAILY ALYSE Administration Atorvastatin Calcium 40 mg 10/18/22 09:00 10/18/22 09:20 Atorvastatin 40 Mg Tab PO 11/17/22 08:59 40 mg DAILY ALYSE Administration Bupropion HCl 150 mg 10/18/22 09:00 10/18/22 09:20 Bupropion Sr 150 Mg Tabcr PO 11/17/22 08:59 150 mg QAM ALYSE Administration Sodium Chloride 1,000 mls @ 100 mls/hr 10/18/22 06:36 10/18/22 11:21 Nss 1000ml IV 11/17/22 06:35 0 mls/hr .Q10H ALYSE Infusion Lisinopril 40 mg 10/18/22 09:00 10/18/22 09:21 Lisinopril 40 Mg Tab PO 11/17/22 08:59 40 mg DAILY ALYSE Administration Morphine Sulfate 3 mg 10/18/22 06:36 10/18/22 07:40 Morphine Sulfate 4 Mg/Ml 1 Ml Carp\\Vial IV 11/01/22 06:35 3 mg Q4H PRN Administration Pain Multivitamins 1 tab 10/18/22 09:00 10/18/22 09:20 Multivitamin Tab PO 11/17/22 08:59 1 tab QAM ALYSE Administration Pantoprazole Sodium 40 mg 10/18/22 09:00 10/18/22 09:20 Pantoprazole 40 Mg Tab PO 11/17/22 08:59 40 mg DAILY ALYSE Administration Prednisone 5 mg 10/18/22 09:00 10/18/22 09:21 Prednisone 5 Mg Tab PO 11/17/22 08:59 5 mg DAILY ALYSE Administration NPO Date Last Intake of Fluids: 10/18/22 Time Last Intake of Fluids: 09:20 Date Last Intake of Solids: 10/17/22 Time Last Intake of Solids: 20:00 Past Medical History Medical History H/O benign breast biopsy Splenic artery aneurysm "s/p repair" Exercise / Class Metabolic Activity II 4-5 Yardwork/Stairs/Walk up hill Past Surgical History Surgical History H/O section H/O colonoscopy "04/26/2015- adenomatous polyp, diverticulosis" H/O esophagogastroduodenoscopy "04/27/2015- hyperplastic polyp, large hiatal hernia, gastritis" History of partial thyroidectomy S/P tonsillectomy and adenoidectomy S/P tubal ligation Past Anesthesia History No Hx of Anesthesia Complications and No Family Hx of Anesthesia Complications History of PONV No Hx of PONV and No Hx of Motion Sickness Social History Smoking Status: Never smoker Do You Dip or Chew Tobacco: No Hx Alcohol Use: No Hx Substance Use: No Physical Exam Vital Signs Last Vital Signs Temp 36.8 C 10/18/22 11:21 Pulse 78 10/18/22 11:21 Resp 16 10/18/22 11:21 BP 121/66 10/18/22 11:21 Pulse Ox 93 10/18/22 08:46 O2 Del Method Nasal Cannula 10/18/22 11:21 O2 Flow Rate 3 10/18/22 11:21 Constitutional + obese; no acute distress ENMT Mouth: + dentition abnormality and + dentures Thyromental Distance: < 3.5 Finger Breadths Mallampati Class: III Neck normal visual inspection and trachea midline; neck extension not limited Respiratory normal respiratory effort Auscultation: lungs clear to auscultation bilaterally Cardiovascular Rate/Rhythm: regular rate and regular rhythm Heart Sounds: no murmur Vessels: no carotid bruit Musculoskeletal Spine: normal cervical ROM and no pain with cervical ROM Extremities: extremities normal to inspection; full ROM of extremities Neurologic moves all extremities Motor/Sensory: no sensory deficit Psychiatric Orientation: alert and oriented x 3 Testing Laboratory Results 10/18/22 04:40 10/18/22 04:40 PT 10.9 Seconds (9.0-12.0) 10/18/22 06:29 INR 1.0 (0.9-1.1) 10/18/22 06:29 Urine Color Dark Yellow 10/18/22 07:43 Urine Appearance Clear (Clear) 10/18/22 07:43 Urine pH 5.5 (4.5-7.5) 10/18/22 07:43 Ur Specific [place] 1.028 (1.000-1.030) 10/18/22 07:43 Urine Protein Negative (Negative) 10/18/22 07:43 Urine Glucose (UA) Negative (Negative) 10/18/22 07:43 Urine Ketones Trace (Negative) H 10/18/22 07:43 Urine Nitrite Negative (Negative) 10/18/22 07:43 Ur Leukocyte Esterase Trace (Negative) H 10/18/22 07:43 Urine WBC (Auto) 1-5 /hpf (0-5) 10/18/22 07:43 Urine RBC (Auto) 5-10 /hpf (0-4) H 10/18/22 07:43 U Hyaline Cast (Auto) 1-5 /lpf (0-5) 10/18/22 07:43 U Epithel Cells (Auto) >30 /lpf (0-5) H 10/18/22 07:43 Urine Bacteria (Auto) Negative (Negative) 10/18/22 07:43 Electrocardiogram Date: 10/18/22 Findings: + NSR @ (@ 80;low voltage QRS)
[2022-10-18] MEDS ORDERED: GLYCOPYRROLATE 0.2 MG/ML VIAL ONE (13:35)
[2022-10-18] MEDS ORDERED: NEOSTIGMINE METHYLSULFATE 1 MG/ML 10ML VIAL ONE (13:35)
[2022-10-18] MEDS ORDERED: ePHEDrine sulfate 50 MG/ML AMP IV PRN (13:36)
[2022-10-18] MEDS ORDERED: LABETALOL HCL IV 5 MG/ML 20ML IV PRN (13:36)
[2022-10-18] MEDS ORDERED: NALOXONE HCL 0.4 MG/1 ML VIAL/CARP IV PRN (13:36)
[2022-10-18] MEDS ORDERED: ATROPINE SULFATE 0.1 MG/ML 10ML SYR IV PRN (13:36)
[2022-10-18] MEDS ORDERED: fentaNYL citrate PF 100 MCG/2 ML VIAL IV PRN (13:36)
[2022-10-18] MEDS ORDERED: FLUMAZENIL 0.1 MG/1 ML 10 ML VIAL IV PRN (13:36)
[2022-10-18] MEDS ORDERED: PROMETHAZINE HCL 12.5 MG in SODIUM CHLORIDE 0.9% 50 ML IV PRN (13:36)
--- NOTE | 2022-10-18 13:54 | Operative Report ---
Post Operative Report Pre & Post Diagnosis Operation Date: 10/18/22 09:50 Pre-Op Diagnosis: FALL, ABDOMINAL PAIN Post-Op Diagnosis: FNA paragastric mass I identified the patient and participated in the time-out.: Yes Procedure Operation Date: 10/18/22 09:50 Actual Procedures p Esophagogastroduodenoscopy - Humza Reaves MD p Endoscopic Ultrasonography Upper - Humza Reaves MD Surgeon Humza Reaves MD Market Analysis Director None Estimated Blood Loss 0 Findings See Below (Likely GIST) Specimens FNA Description of Procedure EUS I attest to the content of the Intraoperative Record and any orders documented therein. Any exceptions are noted below.
[2022-10-18] MEDS ORDERED: LARYING-O-JET KIT (LTA) ONE (14:12)
--- NOTE | 2022-10-18 14:30 | GI REPORT ---
Patient Name: Sirisha Tang Procedure Date: 10/18/2022 12:44 PM Date of : 1945 Admit Type: Inpatient Age: 77 Gender: Female Attending MD: Humza Reaevs MD, Procedure: Upper GI endoscopy Providers: Humza Reaves MD Referring MD: Topher Mai Indications: Abnormal CT of the GI tract Medicines: General Anesthesia Complications: No immediate complications. Estimated Blood Loss: Estimated blood loss: none. Procedure: Pre-Anesthesia Assessment: - Prior to the procedure, a History and Physical was performed, and patient medications, allergies and sensitivities were reviewed. The patient's tolerance of previous anesthesia was reviewed. - The risks and benefits of the procedure and the sedation options and risks were discussed with the patient. All questions were answered and informed consent was obtained. - Patient identification and proposed procedure were verified prior to the procedure by the physician and the nurse. The procedure was verified in the procedure room. - Pre-procedure physical examination revealed no contraindications to sedation. After obtaining informed consent, the endoscope was passed under direct vision. Throughout the procedure, the patient's blood pressure, pulse, and oxygen saturations were monitored continuously. The Endoscope was introduced through the mouth, and advanced to the second part of duodenum. The upper GI endoscopy was accomplished without difficulty. The patient tolerated the procedure well. Findings: The examined esophagus was normal. A large hiatal hernia was present. The entire examined stomach was normal. The duodenal bulb and second portion of the duodenum were normal. Impression: - Normal esophagus. - Large hiatal hernia. - Normal stomach. - Normal duodenal bulb and second portion of the duodenum. Recommendation: - Perform an upper endoscopic ultrasound (UEUS) today. Humza Reaves MD 10/18/2022 2:29:56 PM This report has been signed electronically. Note Initiated On: 10/18/2022 12:44 PM Number of Addenda: 0 I attest to the content of the Intraoperative Record and orders documented therein, exceptions below {[id number]}
--- NOTE | 2022-10-18 14:49 | Anesthesiology Progress Note ---
Date of Service October 18, 2022 Anesthesia Post Procedure Vital Signs Vital Signs: Temp Pulse Pulse Pulse Resp BP BP 10/18/22 14:45 85 12 111/73 10/18/22 14:35 82 17 122/80 10/18/22 14:25 85 17 133/78 10/18/22 14:15 79 16 107/67 10/18/22 14:05 36.1 C L 78 14 99/49 L 10/18/22 11:21 36.8 C 78 16 121/66 10/18/22 08:46 37.3 C 78 16 144/76 H 10/18/22 07:07 78 10/18/22 06:30 79 15 10/18/22 06:00 81 18 10/18/22 05:31 79 24 10/18/22 05:31 124/75 10/18/22 05:30 79 19 10/18/22 05:00 77 18 10/18/22 05:00 112/73 10/18/22 04:31 139/95 10/18/22 04:31 23 10/18/22 04:30 78 21 10/18/22 04:14 80 10/18/22 04:15 79 16 10/18/22 04:15 133/62 10/18/22 04:14 80 20 10/18/22 04:35 78 18 10/18/22 04:17 78 20 133/62 Pulse Ox O2 Del Method O2 Flow Rate 10/18/22 14:45 93 Nasal Cannula 4 10/18/22 14:35 93 Nasal Cannula 4 10/18/22 14:25 93 Nasal Cannula 4 10/18/22 14:15 94 Oxymask 5 10/18/22 14:05 95 Oxymask 5 10/18/22 11:21 Nasal Cannula 3 10/18/22 08:46 93 Nasal Cannula 1 10/18/22 07:07 10/18/22 06:30 92 10/18/22 06:00 93 10/18/22 05:31 91 10/18/22 05:31 10/18/22 05:30 92 10/18/22 05:00 92 10/18/22 05:00 10/18/22 04:31 10/18/22 04:31 86 L 10/18/22 04:30 90 10/18/22 04:14 10/18/22 04:15 89 L 10/18/22 04:15 10/18/22 04:14 82 L 10/18/22 04:35 98 10/18/22 04:17 87 L Room Air Pain Intensity Right Upper Abdomen: Pain Intensity: 5 Transfer of Care Handoff Completed per policy Notes Mental Status: alert / awake / arousable Patient Amnestic to Procedure: Yes Nausea / Vomiting: adequately controlled Pain: adequately controlled Airway Patency, RR, SpO2: stable & adequate BP & HR: stable & adequate Hydration State: stable & adequate Anesthetic Complications: no major complications apparent
--- NOTE | 2022-10-18 14:51 | GI REPORT ---
Patient Name: Sirisha Tang Procedure Date: 10/18/2022 12:43 PM Date of : 1945 Admit Type: Inpatient Age: 77 Gender: Female Attending MD: Humza Reaves MD, Procedure: Upper EUS Providers: Humza Reaves MD Referring MD: Topher Mai Indications: Suspected mass in mediastinum on CT scan Medicines: General Anesthesia Complications: No immediate complications. Estimated Blood Loss: Estimated blood loss: none. Procedure: Pre-Anesthesia Assessment: - Prior to the procedure, a History and Physical was performed, and patient medications, allergies and sensitivities were reviewed. The patient's tolerance of previous anesthesia was reviewed. - The risks and benefits of the procedure and the sedation options and risks were discussed with the patient. All questions were answered and informed consent was obtained. - Patient identification and proposed procedure were verified prior to the procedure by the physician and the nurse. The procedure was verified in the procedure room. - Pre-procedure physical examination revealed no contraindications to sedation. After obtaining informed consent, the endoscope was passed under direct vision. Throughout the procedure, the patient's blood pressure, pulse, and oxygen saturations were monitored continuously. The scope was introduced through the mouth, and advanced to the second part of duodenum. The upper EUS was accomplished without difficulty. The patient tolerated the procedure well. Findings: ENDOSONOGRAPHIC FINDING: : A round intramural (subepithelial) lesion was found near the cardia of the stomach. The lesion was hypoechoic, heterogenous and mostly cystic-appearing. Sonographically, the lesion appeared to originate from the muscularis propria (Layer 4). The lesion also measured 55 mm by 55 mm in diameter. The outer endosonographic borders were well defined. An intact interface was seen between the mass and the adjacent structures suggesting a lack of invasion. Fine needle aspiration for cytology was performed from the solid component of the lesion. Color Doppler imaging was utilized prior to needle puncture to confirm a lack of significant vascular structures within the needle path. Three passes were made with the 25 gauge needle using a transgastric approach. A stylet was used. A agriscience teacher was present and performed a preliminary cytologic examination. The cellularity of the specimen was adequate. Final cytology results are pending. Verification of patient identification for the specimen was done by the physician and nurse using the patient's name and date. There was no sign of significant endosonographic abnormality in the ampulla. No masses were identified. There was no sign of significant endosonographic abnormality in the common bile duct. The maximum diameter of the duct was 4 mm. No stones and no biliary sludge were identified. There was no sign of significant endosonographic abnormality in the gallbladder. No stones were identified. There was no sign of significant endosonographic abnormality in the visualized portion of the liver. Homogeneous parenchyma was identified. Pancreatic parenchymal abnormalities were noted in the entire pancreas. These consisted of diffuse echogenicity. There was no sign of significant endosonographic abnormality in the visualized portion of the left adrenal gland. There was no sign of significant endosonographic abnormality involving the celiac trunk. Impression: - A 5 cm exophytic lesion near the cardia of the stomach seems to originate from the MP of the stomach. 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 Fine needle aspiration performed. - There was no sign of significant pathology in the ampulla. - There was no sign of significant pathology in the common bile duct. - There was no sign of significant pathology in the gallbladder. - There was no evidence of significant pathology in the visualized portion of the liver. - Pancreatic parenchymal abnormalities consisting of diffuse echogenicity were noted in the entire pancreas. - Endosonographic images of the left adrenal gland were unremarkable. - The celiac trunk was endosonographically normal. Recommendation: - Return patient to [facility] for [facility] care. - Await cytology results. - I will refer the patient to Surgical Oncology at [facility] as OP. Humza Reaves MD 10/18/2022 2:51:00 PM This report has been signed electronically. Note Initiated On: 10/18/2022 12:43 PM Number of Addenda: 0 I attest to the content of the Intraoperative Record and orders documented therein, exceptions below {[id number]}
[2022-10-18] MEDS: HEPARIN SOD 5,000 UNIT/0.5 ML VIAL SQ SCH ×2 (15:55→22:37)
--- NOTE | 2022-10-18 16:46 | Communication Note ---
Date of Service: October 18, 2022 77-year-old female has had a fall on Sunday with injury to the right lower abdominal wall and has been complaining of increasing pain. CT scan revealed possible gastric mass and the patient was admitted for chest pain management and investigation of the possible gastric mass. She is a status post EGD and EUS. Clinically better will have full progress not e tomorrow. Dr Carloz Mai
[2022-10-19] MEDS: MoRPHine SULFATE 4 MG/ML 1 ML CARP\\VIAL IV PRN (01:35)
[2022-10-19] MEDS: SODIUM CHLORIDE 0.9% 1000ML 1,000 ML IV SCH (03:42)
[2022-10-19] MEDS: HEPARIN SOD 5,000 UNIT/0.5 ML VIAL SQ SCH ×2 (05:35→15:16)
[2022-10-19 05:56] LABS: Basophils # (auto) 0.03 K/uL (0-0.2); Basophils % (auto) 0.5 %; Eosinophils # (auto) 0.23 K/uL (0-0.50); Eosinophils % (auto) 3.9 %; Hematocrit (blood only) 37.7 % (37.0-47.0); Hemoglobin 12.4 g/dl (12.0-16.0); Immature Granulocytes # (auto) 0.03 K/uL (0.01-0.20); Immature Granulocytes % (auto) 0.5 %; Lymphocytes # (auto) 1.35 K/uL (1.2-3.4); Lymphocytes % (auto) 22.8 %; Mean Corpuscular Hemoglobin 31.5 pg (25.0-34.0); Mean Corpuscular Hgb Conc 32.9 g/dL (32.0-36.0); Mean Corpuscular Volume 95.7 fL (80.0-100.0); Mean Platelet Volume 9.7 fL (9.4-12.4); Monocytes # (auto) 0.84 K/uL (0.11-0.59); Monocytes % (auto) 14.2 %; Neutrophils # (auto) 3.45 K/uL (1.40-6.50); Neutrophils % (auto) 58.1 %; Platelet Count 205 K/uL (130-400); RDW Coefficient of Variation 15.4 % (11.5-14.5); Red Blood Count 3.94 M/uL (4.20-5.40); White Blood Count 5.93 K/ul (4.8-10.8)
[2022-10-19 06:10] LABS: BUN Creatinine Ratio 18.2 (10-20); Calcium 9.1 mg/dl (8.6-10.3); Creatinine Clr Calc Pharmacy 66.8 ml/min; Est GFR (African American) 86.3 ml/min; Est GFR (Non-African American) 74.5 ml/min; Magnesium 2.1 mg/dl (1.7-2.4); Potassium 4.4 mmol/L (3.5-5.1)
[2022-10-19] MEDS: HYDROCODONE/ACETAMOPHEN 5/325MG TAB PO PRN (08:50)
[2022-10-19] MEDS: MULTIVITAMIN TAB PO SCH (08:53)
[2022-10-19] MEDS: predniSONE 5 MG TAB PO SCH (08:53)
[2022-10-19] MEDS: lisinopril 40 MG TAB PO SCH (08:53)
[2022-10-19] MEDS: ATORVASTATIN 40 MG TAB PO SCH (08:53)
[2022-10-19] MEDS: amLODIPine BESYLATE 5 MG TAB PO SCH (08:53)
[2022-10-19] MEDS: buPROPion SR 150 MG TABCR PO SCH (08:54)
[2022-10-19] MEDS: PANTOprazole 40 MG TAB PO SCH (08:54)
--- NOTE | 2022-10-19 10:47 | Gastroenterology Progress Note ---
Date of Service October 19, 2022 Assessment & Plan (1) Mass of stomach: Plan 1. No GI contraindication to regular consistency diet. 2. EGD/EUS Findings reviewed w pt and FNA results will be addressed when available. 3. Dr. Reaves referred pt to surgical/oncology in [place] - for likely GIST. 4. GI will sign off. Please recall if questions. Admission and Anticipated Discharge Date Admission Date: October 18, 2022 Supervising Physician Co-Signing Physician Notes I performed a history and physical examination of the patient today, including specifically on physical exam - soft abdomen. I have discussed the patient's management with the advanced practitioner. Please refer to the nurse practitioner's note for the documented findings and plan of care. Discussed EUS findings with the patient, likely GIST. I already started arrangements for her to see as OP. Recall GI if needed. Subjective Ms. Sirisha Tang is a 77-year-old female who was admitted yesterday due to pain related to a fall a few days prior. Imaging on arrival questioning a gastric tumor. Underwent EGD EUS yesterday with findings suspicious for GIST. Review of Systems Review of Systems: ROS: Gen: Feeling well this morning, denies any weakness, pain from fall is much improved. No weight loss. Eyes: No eye redness, or pain, no recent vision changes Resp: No SOB, no cough Cardio: No palpitations/irregular beats, no chest pain GI: As per HPI, otherwise negative. : Denies pain on urination Skin: No jaundice, itching or new rashes Physical Exam Constitutional: WD/WN, vitals as above Eyes: PERRL, conjunctivae normal, anicteric sclerae ENMT: external ear and nose normal, oropharynx normal Neck: trachea midline, no thyromegaly Respiratory: normal respiratory effort, lungs clear to auscultation Cardiovascular: RRR, no murmur, no edema Skin: no rashes, warm and dry Neurologic: PERRL, EOMI, accommodation nl, no face palsy, no dysarthria Psychiatric: Orientation: alert, oriented x 3 and oriented to person Eye Contact: good eye contact Motor Behavior: n tremor Lymphatic: no cervical or axillary lymphadenopathy Results & Data Vital Signs (Past 12 Hours) Vital Signs Temp Pulse Resp BP Pulse Ox O2 Del Method O2 Flow Rate 10/19/22 07:45 36.8 C 72 20 117/72 Room Air 10/19/22 03:23 36.7 C 67 18 109/65 95 Nasal Cannula 4 Laboratory Results WBC 5.93, Hb 12.4, HCT 37.7, PLT S205, NA 135, K4.4, CL 105, CO2 30, BUN 14, CR 0.7, glucose 84. Diagnostic Findings EUS 10/18/22: - A 5 cm exophytic lesion near the cardia of the stomach seems to originate from the MP of the stomach. 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 Fine needle aspiration performed. CTAP 10/18/22: 1. There is a heterogeneous mass with irregular hypodense component centrally along the left lateral aspect of the herniated stomach in the posterior mediastinum measuring 5.5 x 5.5 x 6.8 cm. Favor an exophytic gastric mass over atypical gastric hernia. Recommend nonemergent evaluation with IV and ideally oral contrast.
--- NOTE | 2022-10-19 12:48 | Hospitalist Progress Note ---
Date of Service October 19, 2022 Assessment & Plan (1) Mass of stomach: Plan: Presented with a fall and right flank pain as below Incidental finding of stomach mass and is status post EGD and EUS Fine-needle aspiration was done from the stomach mass and awaiting further results She has been tolerating diet and will be discharged home this afternoon She will have an appointment with surgical oncology in [place] (2) Abdominal pain: Plan: She was admitted with history of fall on Sunday before admission and with right flank/abdominal pain No local bruising and no fractures identified Her pain is controlled Incidental finding on CAT scan stomach mass as above (3) Systemic lupus erythematosus: Plan: No acute symptoms (4) Hypertension: Plan: Blood pressure is controlled (5) Dyslipidemia: Plan: Continue current medications Plan She will be discharged home this afternoon Admission and Anticipated Discharge Date Admission Date: October 18, 2022 Subjective 10/19/2022 The patient was seen and examined in medical floor She has been feeling much better and tolerated liquid diet and will advance as tolerated from here She wants to go home this afternoon Her pain in the right lateral flank area is improved and she has the pain medicine at home Review of Systems Review of Systems: All systems reviewed and are unremarkable except as noted below Physical Exam Physical Exam: Lying in bed comfortably Constitutional: well developed, well nourished and + obese; not ill appearing Eyes: PERRL, conjunctivae normal, anicteric sclerae ENMT: external ear and nose normal, oropharynx normal Neck: trachea midline, no thyromegaly Respiratory: no respiratory distress Auscultation: lungs clear to auscultation bilaterally Cardiovascular: Rate/Rhythm: regular rate and regular rhythm Heart Sounds: normal S1 and normal S2; no murmur Gastrointestinal (Abdomen): Inspection/Auscultation: normal bowel sounds; abdomen not distended and no abdominal wall ecchymosis Percussion/Palpation: + abdomen tender (Minimal tenderness involving the right flank) and abdomen soft Musculoskeletal: No acute arthritis involving any joint Neurologic: normal touch/pain/proprioception and moves all extremities; no focal motor deficits Psychiatric: A+Ox3, euthymic affect Lymphatic: no cervical or axillary lymphadenopathy Results & Data Results & Data Vital Signs (Past 12 Hours) Vital Signs Temp Pulse Pulse Pulse Resp BP BP 10/18/22 16:02 37.2 C 83 18 114/68 10/18/22 15:36 36.4 C L 84 18 117/68 10/18/22 14:55 36.5 C 83 15 126/72 10/18/22 14:45 85 12 111/73 10/18/22 14:35 82 17 122/80 10/18/22 14:25 85 17 133/78 10/18/22 14:15 79 16 107/67 10/18/22 14:05 36.1 C L 78 14 99/49 L 10/18/22 11:21 36.8 C 78 16 121/66 10/18/22 08:46 37.3 C 78 16 144/76 H 10/18/22 07:07 78 10/18/22 06:30 79 15 10/18/22 06:00 81 18 10/18/22 05:31 79 24 10/18/22 05:31 124/75 10/18/22 05:30 79 19 10/18/22 05:00 77 18 10/18/22 05:00 112/73 Pulse Ox O2 Del Method O2 Flow Rate 10/18/22 16:02 93 Nasal Cannula 4 10/18/22 15:36 94 Nasal Cannula 4 10/18/22 14:55 93 Nasal Cannula 4 10/18/22 14:45 93 Nasal Cannula 4 10/18/22 14:35 93 Nasal Cannula 4 10/18/22 14:25 93 Nasal Cannula 4 10/18/22 14:15 94 Oxymask 5 10/18/22 14:05 95 Oxymask 5 10/18/22 11:21 Nasal Cannula 3 10/18/22 08:46 93 Nasal Cannula 1 10/18/22 07:07 10/18/22 06:30 92 10/18/22 06:00 93 10/18/22 05:31 91 10/18/22 05:31 10/18/22 05:30 92 10/18/22 05:00 92 10/18/22 05:00 Laboratory Results Short CBC 10/19/22 Range/Units 05:29 WBC 5.93 (4.8-10.8) K/ul Hgb 12.4 (12.0-16.0) g/dl Hct 37.7 (37.0-47.0) % Plt Count 205 (130-400) K/uL BMP 10/19/22 05:29 Sodium 138 Potassium 4.4 Chloride 105 Carbon Dioxide 30 BUN 14 Creatinine 0.77 Glucose 84 Calcium 9.1 Medications Administered Current Inpatient Medications Acetaminophen (Acetaminophen 325 Mg Tab) 650 mg PO Q4H PRN PRN Reason: pain/fever Stop: 11/17/22 06:35 Hydrocodone Bitart/Acetaminophen (Hydrocodone/Acetamophen 5/325mg Tab) 1 tab PO Q6H PRN PRN Reason: Pain Stop: 11/01/22 06:35 Last Admin: 10/19/22 08:50 Dose: 1 tab Amlodipine Besylate (Amlodipine Besylate 5 Mg Tab) 10 mg PO DAILY ALYSE Stop: 11/17/22 08:59 Last Admin: 10/19/22 08:53 Dose: 10 mg Atorvastatin Calcium (Atorvastatin 40 Mg Tab) 40 mg PO DAILY ALYSE Stop: 11/17/22 08:59 Last Admin: 10/19/22 08:53 Dose: 40 mg Bupropion HCl (Bupropion Sr 150 Mg Tabcr) 150 mg PO QAM ALYSE Stop: 11/17/22 08:59 Last Admin: 10/19/22 08:54 Dose: 150 mg Heparin Sodium (Porcine) (Heparin Sod 5,000 Unit/0.5 Ml Vial) 5,000 units SQ Q8 ALYSE Stop: 11/17/22 13:59 Last Admin: 10/19/22 05:35 Dose: 5,000 units Sodium Chloride (Nss 1000ml) 1,000 mls @ 100 mls/hr IV .Q10H ALYSE Stop: 11/17/22 06:35 Last Admin: 10/19/22 03:42 Dose: 100 mls/hr Lisinopril (Lisinopril 40 Mg Tab) 40 mg PO DAILY ALYSE Stop: 11/17/22 08:59 Last Admin: 10/19/22 08:53 Dose: 40 mg Lorazepam (Lorazepam 1 Mg Tab) 1 mg PO DAILY PRN PRN Reason: Anxiety Stop: 11/17/22 06:35 Last Admin: 10/18/22 23:45 Dose: 1 mg Morphine Sulfate (Morphine Sulfate 4 Mg/Ml 1 Ml Carp\Vial) 3 mg IV Q4H PRN PRN Reason: Pain Stop: 11/01/22 06:35 Last Admin: 10/19/22 01:35 Dose: 3 mg Multivitamins (Multivitamin Tab) 1 tab PO QAM ALYSE Stop: 11/17/22 08:59 Last Admin: 10/19/22 08:53 Dose: 1 tab Pantoprazole Sodium (Pantoprazole 40 Mg Tab) 40 mg PO DAILY [facility] Stop: 11/17/22 08:59 Last Admin: 10/19/22 08:54 Dose: 40 mg Prednisone (Prednisone 5 Mg Tab) 5 mg PO DAILY [facility] Stop: 11/17/22 08:59 Last Admin: 10/19/22 08:53 Dose: 5 mg
--- NOTE | 2022-10-19 15:33 | Discharge Summary ---
Discharge Summary Date of Service October 19, 2022 Notes For Next Care Provider Presented for fall and abdominal pain, found to have stomach mass, biopsied with GI suspecting GIST. Will follow up with surg onc in [place]. Medication Changes From Visit Doxycycline course for possible lyme disease Admission HPI Per Admitting Provider This is a 77-year-old female with past medical history significant for hyperlipidemia, hypertension, reflux esophagitis, colitis, osteoporosis, history of iron deficiency anemia, history of SLE, and history of COVID-19, presents with fall and right flank and abdominal pain. The patient states on Sunday on her porch she stood on a 3-step stool and trying to put stuff om the roof. when she looked up, the patient felt dizzy and she fell, and while falling down, she held on the pole and pole hit the right side of the abdomen and flank region and she fell on the back, did not hit her head, no loss of consciousness. She was down for some time because of pain, and then after that, she was able to get up and walk. The pain is getting worse and thats the reason she came to the ER today. Denies any chest pain. When the pain is severe, she will still get some shortness of breath and nausea. She says she was recently treated for pneumonia a few weeks back. Her cough is improved. At that time, she had ear fullness and it has improved now. No runny nose. No sore throat. Appetite is okay. Denies any headache. She feels some dizziness with standing. Vision is okay. Constipated since last Sunday. Normal bladder movements. No hematuria. No swelling in the legs. Currently, resting comfortably and hemodynamically stable. Admission Exam Per Admitting Provider GENERAL: The patient is obese, not in acute distress. VITAL SIGNS: Temperature afebrile, pulse 78, respiratory rate 18, blood pressure 133/62, and oxygen saturation 98% on room air. HEENT: Pupils equal, round, and reactive to light. Oral mucosa moist. NECK: No JVD. No neck masses. CARDIOVASCULAR: S1 and S2 heard. Regular rate and rhythm. No murmur. No gallop. RESPIRATORY SYSTEM: Normal AP diameter. No accessory muscle use. No wheezing or crackles. ABDOMEN: Soft. Bowel sounds present. Tenderness in the right lower quadrant and flank region. Mild guarding. No rigidity. No distention. CENTRAL NERVOUS SYSTEM: Alert and oriented. Speech is clear. No facial droop. Insight is okay. Moves extremities. EXTREMITIES: No edema. No erythema. Principal Dx & Hospital Course #1 = Principal Diagnosis (1) Mass of stomach: (2) Abdominal pain: (3) Systemic lupus erythematosus: (4) Hypertension: (5) Tick bite: Plan This is a 77-year-old female with PMH significant for hyperlipidemia, hypertension, reflux esophagitis, colitis, osteoporosis, history of iron deficiency anemia, history of SLE, and history of COVID-19, presents with fall and right flank and abdominal pain.CT abd/pelvis with a heterogeneous mass with irregular hypodense component centrally along the left lateral aspect of the herniated stomach in the posterior mediastinum measuring 5.5 x 5.5 x 6.8 cm. Favor an exophytic gastric mass over atypical gastric hernia.Underwent EGD/EUS by gastroenterology for biopsy of mass. Pathology is still pending but GI suspects GIST. Referred by Dr. Reaves to surgical/oncology in [place] for evaluation once pathology results. Pain has significantly improved, patient tolerating regular diet. During admission, tick found on abdomen. Tick identification and serology still pending. Discharged on prophylactic course of doxycycline for possible lyme disease. Discharge Exam Gen: WD/WN, NAD, sitting in bedside chair, A&Ox3 HEENT: Normocephalic, atraumatic, conjunctivae moist, sclerae anicteric, mucous membranes moist Lung: Clear to Auscultation bilaterally, no wheezes/rales/rhonchi Heart: Regular rate, regular rhythm, no murmurs, rubs, or gallops Abdomen: Soft, NT, ND +BS x 4 Extremities: no edema Skin: Warm, no rash Updated Medication List Medication Instructions Recorded Confirmed Type atorvastatin 40 mg tablet 40 mg PO DAILY 06/17/20 07/26/20 History bupropion HCl 150 mg tablet,12 hr 150 mg PO QAM 06/17/20 07/26/20 History sustained-release hydrocodone 5 mg-acetaminophen 325 1 tab PO Q6H PRN 06/17/20 07/26/20 History mg tablet lisinopril 40 mg tablet 40 mg PO DAILY 06/17/20 07/26/20 History lorazepam 1 mg tablet (Ativan) 1 mg PO DAILY PRN 06/17/20 07/26/20 History methotrexate sodium 2.5 mg tablet 2.5 mg PO DIRECTED 06/17/20 07/26/20 History multivitamin 1 tab PO DAILY 06/17/20 07/26/20 History omeprazole 40 mg capsule,delayed 40 mg PO DAILY 06/17/20 07/26/20 History release prednisone 5 mg tablet 5 mg PO DAILY 06/17/20 07/26/20 History amlodipine 10 mg tablet 10 mg PO DAILY 10/18/22 10/18/22 History doxycycline hyclate 100 mg tablet 100 mg PO BID 10 days #20 tabs 10/19/22 Rx Hospital Stay Data Consultations 10/18/22 05:09 ED Decision to Admit Stat 10/18/22 08:00 Consult Gastroenterology Routine Procedures Performed Operation Date: 10/18/22 09:50 Actual Procedures p Esophagogastroduodenoscopy - Humza Reaevs MD p Endoscopic Ultrasonography Upper - Humza Reaves MD Diagnostic Imagining Performed 10/18/22 04:08 CT abd pelvis wo con Stat 10/18/22 04:17 CT chest diagnostic wo con Stat 10/18/22 11:51 US upper EUS PACS images Routine Pending Results Patient Have Any Pending Studies at Discharge: No Discharge Instructions Given to Patient (Per Discharging Provider) SUMMARY OF TEST RESULTS: You were admitted to hospital secondary to fall. A stomach mass was incidentally seen on CT abdomen imaging. Underwent EGD/EUS by gastroenterology for biopsy of mass. Pathology is still pending. Referred by Dr. Reaves to surgical/oncology in [place] for evaluation once pathology results. Pain has significantly improved, patient tolerating regular diet. Please take doxycycline 100mg twice daily x 10 days for possible lyme disease. PENDING TEST RESULTS: Pathology of biopsied stomach mass Tick identification (found during admission) and lyme titer pending RECOMMENDATIONS FOR FOLLOW-UP: Follow up with PCP and surgical oncology in [place] as scheduled above. Complete antibiotic in its entirety. Continue medication regimen as scheduled aside from changes noted above. OTHER INSTRUCTIONS: Seek medical attention if you have: * temperature above 101 * chest pain or trouble breathing * abdominal pain, nausea, vomiting * diarrhea, dark stools or bloody stools * any unanswered questions or concerns Call 911 if symptoms are severe. Please take good care of yourself. Call if you have any questions or problems. You can reach a [facility] hospitalist on duty at [facility] 24 hours a day by calling [phone]. Total Time Total Time Spent Total Time Spent (In Minutes): 50 Supervising Physician Co-Signing Physician Notes Attending addendum; The patient was seen and examined on 10/19/2022 Please see my full progress note from that day Agree with assessment and plan as documented above by Ariana Pacheco PA-C.
[2022-10-23 03:48] LABS: Babesia microti DNA Not Detected (Not Detected)
[2022-10-24 22:07] LABS: Ehrlichia chaff DNA Bld Negative (Negative)
== END 2022-10-19 16:38 | disposition home or self-care (01) | DRG 375 ==
LOC: ED 04:05 → EDINP 06:16 → 3E 08:14